=== PATIENT | male | born 2000 | race Caucasian/White ===

== ENCOUNTER 2023-04-21 09:32 | Day surgery (SDC) | payer BC, OTHER ==
[2023-04-16 13:35] VITALS: BMI 18.4
[~2023-04-21 09:32] MED LIST: LACTATED RINGERS 1,000 ML IV SCH; LIDOCAINE 1% (10MG/ML) FOR IV START INTRADERMA PRN
[2023-04-21 10:12] VITALS: TEMP 97
[2023-04-21] MEDS ORDERED: PROPOFOL 10 MG/ML 20 ML VIAL IV ONE (10:47)
--- NOTE | 2023-04-21 11:00 | P.PCN ---
Date of Procedure: 04/21/23 Procedure(s) Performed: BRIEF HISTORY: Patient is a 22-year-old pleasant white male scheduled for an elective colonoscopy as a part of evaluation of intermittent rectal bleeding for the last 2 months duration. PROCEDURE PERFORMED: Colonoscopy. PREOPERATIVE DIAGNOSIS: Intermittent rectal bleeding. IV sedation per Anesthesia. PROCEDURE: After informed consent was obtained, the patient, was brought into the endoscopy unit. IV sedation was administered by Anesthesia under continuous monitoring. Digital rectal examination was normal. Initially the Olympus CF-160 flexible video colonoscope was then inserted in the rectum, gradually advanced into the cecum without any difficulty. Careful examination was performed as the scope was gradually being withdrawn. Ileocecal valve and the appendiceal orifice were visualized and appeared normal. Prep was excellent. Mucosa of the cecum, ascending colon, transverse colon, descending colon, sigmoid colon, and rectum appeared normal. Retroflexion was performed in the rectum and no lesions were seen. The patient tolerated the procedure well. IMPRESSION: Normal-appearing colon from rectum to cecum with no evidence of colorectal neoplasia . RECOMMENDATIONS: Findings of this examination were discussed with the patient as well as his family. He will was advised to be on a high-fiber diet and avoid straining and constipation. Follow up in office if he has recurrent rectal bleeding.
[2023-04-21 11:10] VITALS: RESP 16
[2023-04-21 11:43] VITALS: BP 107/65; PULSE 66
== END 2023-04-21 11:45 | disposition home or self-care (01) ==
LOC: ORWHC2ENDO 09:32
PROVIDERS: ATTEND Internal Medicine Gastroenterology
DX: K62.5 Hemorrhage of anus and rectum (principal); Z91.013 Allergy to seafood
CPT/HCPCS: 45378; J2704